=== PATIENT | female | born 1930 | race Caucasian/White ===

== ENCOUNTER → 2017-12-31 | Outpatient (CLI) | payer OTHER ==
[~2017-12-31] MED LIST: ASPIRIN EC81 M1 PO; CEFTIN500 MG PO; FLAGYL500 MG PO; KEPPRA XR750 MG PO; LISINOPRIL20 MG PO; TRILEPTAL300 MG PO; TYLENOL325 MG PO
--- NOTE | ~2017-12-31 | 2DMMODE ---
[facility] [address] [place] [address] 2 D/M-MODE ECHOCARDIOGRAM Name: JASON FRAUSTO [facility] #: [id number] Admission: 12/31/17 Attend Phys: Gaurav Thornton Discharge: Date of : 32 Date of Service: 01/03/18 1241 Report #: [id number] THIS REPORT FOR: //name// APPROVED REPORT Study performed: 12/31/2017 15:09:51 EXAM: Comprehensive 2D, Doppler, and color-flow Echocardiogram Patient Location: Out-Patient Room #: Echo lab Status: routine BSA: 1.76 HR: 53 bpm BP: 138/80 mmHg Other Information Study Quality: Adequate Indications HTN, R^O endocarditis 2D Dimensions RVDd: 29.37 mm LVEF(%): 63.13 (>50%) IVSd: 9.13 (7-11mm) LVOT Diam: 19.78 (18-24mm) LVDd: 49.55 mm PWd: 10.49 (7-11mm) Ascending Ao: 30.06 (22-36mm) LVDs: 32.55 (25-40mm) Aortic Root: 28.06 mm IVC: 14.00 mm [place]'s LVEF: 63.13 % Volumes Left Atrial Volume (Systole) Single Plane 4CH: 33.56 mL Single Plane 2CH: 29.50 mL LA ESV Index: 19.00 mL/m2 Aortic Valve AoV Peak Kiel.: 1.24 m/s AO Peak Gr.: 6.14 mmHg LVOT Max P.25 mmHg LVOT Max V: 0.90 m/s JORDY Vmax: 2.24 cm2 Mitral Valve E/A Ratio: 0.6 MV Decel. Time: 243.26 ms MV E Max Kiel.: 0.46 m/s [facility] [place] [address] 2 D/M-MODE ECHOCARDIOGRAM Name: FRAUSTOJASON Bobby [facility] [id number] Admission: 12/31/17 Attend Phys: Gaurav Thornton Discharge: Date of : 32 Date of Service: 01/03/18 1241 Report #: [id number] MV A Kiel.: 0.75 m/s MV PHT: 70.55 ms IVRT: 138.41 ms Pulmonary Valve PV Peak Kiel.: 0.86 m/s PV Peak Gr.: 2.94 mmHg Pulmonary Vein P Vein S: 0.78 m/s P Vein A: 0.25 m/s P Vein D: 0.43 m/s P Vein A Dur.: 133.8 msec P Vein S/D Ratio: 1.81 Left Ventricle The left ventricle is normal size. There is normal left ventricular wall thickness. The left ventricular systolic function is normal. The left ventricular ejection fraction is within the normal range. LVEF is 55-60%. Grade I - abnormal relaxation pattern. Right Ventricle The right ventricle is normal size. The right ventricular systolic function is normal. Atria The left atrium size is normal. The right atrium size is normal. Aortic Valve The aortic valve is normal in structure. No aortic regurgitation is present. There is no aortic valvular stenosis. Mitral Valve The mitral valve is normal in structure. Trace mitral regurgitation. No evidence of mitral valve stenosis. Tricuspid Valve The tricuspid valve is normal in structure. There is no tricuspid valve regurgitation noted. Pulmonic Valve The pulmonary valve is normal in structure. There is no pulmonic valvular regurgitation. Great Vessels The aortic root is normal in size. IVC is normal in size and collapses >50% with inspiration. [facility] [address] [place] [address] 2 D/M-MODE ECHOCARDIOGRAM Name: JASON FRAUSTO Room #: [facility] [id number] Admission: 12/31/17 Attend Phys: Gaurav Thornton Discharge: Date of : 32 Date of Service: 01/03/18 1241 Report #: [id number] Pericardium There is no pericardial effusion. <Conclusion> The left ventricle is normal size. LVEF is 55-60%. The aortic valve is normal in structure. The mitral valve is normal in structure. Trace mitral regurgitation. The tricuspid valve is normal in structure. The pulmonary valve is normal in structure. The aortic root is normal in size. There is no pericardial effusion. <ELECTRONICALLY SIGNED> By: Gaurav Mccain MD 01/03/18 1241 1241 [id number] Gaurav Mccain MD /INF
== END ==
LOC: CV 14:48
DX: I10 Essential (primary) hypertension (principal)

== ENCOUNTER → 2020-01-03 | Outpatient (CLI) | payer OTHER | LOC: SJCVC 15:18 | DX: I10 Essential (primary) hypertension (principal); I44.7 Left bundle-branch block, unspecified; R06.83 Snoring; Z79.899 Other long term (current) drug therapy; Z87.891 Personal history of nicotine dependence ==